=== PATIENT | male | born 1990 | race Caucasian/White ===

== ENCOUNTER → 2023-12-05 10:29 | Outpatient (REF) | payer OTHER, SELFPAY ==
[2023-12-05 13:01] LABS: Rubella Negative
[2023-12-05 13:36] LABS: Hepatitis B Surface Antibody Negative
[2023-12-08 10:48] LABS: Quantiferon Mitogen minus NIL >10.00 IU/mL; Quantiferon NIL 0.04 IU/mL; Quantiferon TB Gold Plus Negative (Negative)
== END ==
LOC: OHS 10:29
PROVIDERS: ATTENDING PHYSICIAN Nurse Practitioner Family
DX: Z23 Encounter for immunization (principal)
CPT/HCPCS: 36415; 86480; 86706; 86735; 86762; 86765; 86787

== ENCOUNTER → 2024-02-19 10:44 | Outpatient (REF) | payer OTHER, SELFPAY ==
[2024-02-19 19:50] LABS: Hepatitis B Surface Antibody Positive
== END ==
LOC: REG 10:44
PROVIDERS: ATTENDING PHYSICIAN Nurse Practitioner Family
DX: Z23 Encounter for immunization (principal)
CPT/HCPCS: 36415; 86706